=== PATIENT | female | born 1990 | race Caucasian/White ===

== ENCOUNTER 2018-10-30 17:30 | Emergency (ER) | payer OTHER ==
[~2018-10-30] VITALS: Ht 142.2 cm; Wt 54.4 kg
[~2018-10-30 17:30] MED LIST: MULTIVITAMINS1 EAC7 PO; PRILOSEC 20 MG20 MG PO
[2018-10-30 17:56] LABS: URINE CLARITY CLEAR; URINE COLOR YELLOW
[2018-10-30 17:57] LABS: URINE BILIRUBIN NEGATIVE (Negative); URINE BLOOD TRACE (Negative); URINE GLUCOSE-RANDOM* NEGATIVE (Negative); URINE KETONES NEGATIVE (Negative); URINE NITRITE-REFLEX NEGATIVE (Negative); URINE PROTEIN (DIPSTICK) NEGATIVE (Negative)
[2018-10-30 17:58] LABS: URINE LEUKOCYTES-REFLEX 2+ (Negative); URINE UROBILINOGEN 0.2 E.U./dl (0.2-1.0)
[2018-10-30 18:09] LABS: CASTS None Seen /LPF (None Seen); CRYSTALS None Seen /LPF (None Seen); SQUAMOUS 0-3 Few /LPF (0-3)
[2018-10-30 18:10] LABS: BACTERIA-REFLEX 1-9 Few /HPF (None Seen); URINE RBC 0-2 Rare /HPF (0-2); URINE WBC-REFLEX 0-5 Rare /HPF (0-5)
[2018-10-30] MEDS ORDERED: ZOFRAN ODT4 MG PO (18:15)
[2018-10-30 18:46] VITALS: BP 108/72
== END 2018-10-30 18:47 | disposition home or self-care (01) ==
LOC: ER 17:30
PROVIDERS: Emergency Medicine
DX: B34.9 Viral infection, unspecified (principal)

== ENCOUNTER 2020-12-10 23:08 | Emergency (ER) | payer OTHER ==
[~2020-12-10] VITALS: Ht 144.8 cm; Wt 54.4 kg
[~2020-12-10 23:08] MED LIST changes: +ZOFRAN ODT4 MG PO
[2020-12-11 00:18] VITALS: BP 108/68
== END 2020-12-11 00:19 | disposition home or self-care (01) ==
LOC: ER 23:08
DX: R51.9 Headache, unspecified (principal)